=== PATIENT | female | born 1955 | race Caucasian/White ===

== ENCOUNTER 2017-03-08 15:18 | Outpatient (CLI) | payer OTHER ==
--- NOTE | 2017-03-08 16:24 | MMO ---
BILATERAL DIGITAL SCREENING MAMMOGRAMS WITH CAD 03/08/17 COMPARISON: Comparison is made with exams of 03/02/16 and 01/17/14. There are scattered fibroglandular densities. No suspicious masses, calcifications or architectural distortion are seen. IMPRESSION: BI-RADS 1: Negative Routine annual screening mammography (for women over age 40) POS: [facility]
== END 2017-03-08 15:19 | disposition home or self-care (01) ==
LOC: SCSMAMMO 15:18
PROVIDERS: ATTEND Obstetrics & Gynecology
DX: Z12.31 Encounter for screening mammogram for malignant neoplasm of breast (principal)
CPT/HCPCS: 77067; G0202

== ENCOUNTER 2018-05-02 10:19 | Outpatient (CLI) | payer OTHER ==
--- NOTE | 2018-05-02 13:08 | MMO ---
BILATERAL DIGITAL SCREENING MAMMOGRAMS: HISTORY: A 63-year-old female presents for digital screening mammography. COMPARISON: 03/08/2017, 03/02/2016, 01/17/2014, 01/26/2013 FINDINGS: This patient's mammogram is interpreted with the assistance of computer aided detection. Scattered areas of fibroglandular density are noted bilaterally. There is no direct or indirect evid ence of malignancy. IMPRESSION: BI-RADS Category 1-Negative. Continue routine screening. POS: [facility]
== END 2018-05-02 10:20 | disposition home or self-care (01) ==
LOC: SCSMAMMO 10:19
PROVIDERS: ATTEND Physician Assistant
DX: Z12.31 Encounter for screening mammogram for malignant neoplasm of breast (principal)
CPT/HCPCS: 77067

== ENCOUNTER 2021-09-24 07:21 | Outpatient (CLI) | payer MEDICARE | END 2021-09-24 07:22 | disposition home or self-care (01) | LOC: ULT 07:21 | PROVIDERS: ATTEND Internal Medicine Gastroenterology | DX: D35.02 Benign neoplasm of left adrenal gland (principal); K52.9 Noninfective gastroenteritis and colitis, unspecified; R10.2 Pelvic and perineal pain; Z80.0 Family history of malignant neoplasm of digestive organs | CPT/HCPCS: 76705 ==